=== PATIENT | male | born 1980 | race African-American/Black ===

== ENCOUNTER → 2022-01-11 | Outpatient (CLI) | payer OTHER | END | disposition home or self-care (01) | LOC: RADPV 10:07 | PROVIDERS: ATTEND Chiropractor | DX: I49.9 Cardiac arrhythmia, unspecified (principal) | CPT/HCPCS: 93005; 93306 ==

== ENCOUNTER → 2022-01-27 | Outpatient (CLI) | payer OTHER | END | disposition home or self-care (01) | LOC: RADMN 10:46 | PROVIDERS: ATTEND Chiropractor | DX: M47.812 Spondylosis without myelopathy or radiculopathy, cervical region (principal); M13.80 Other specified arthritis, unspecified site | CPT/HCPCS: 72040; 73521; 73030-TC; 73070-TC; 73100-TC; 73120-TC; 73562-TC; 73610-TC; 73620-TC ==